=== PATIENT | female | born 1965 | race Caucasian/White ===

== ENCOUNTER 2018-03-03 05:37 | Inpatient (IN) | payer OTHER ==
[2018-03-03] MEDS ORDERED: GABAPENTIN 300 MG CAP PO ONE (06:50)
[2018-03-03] MEDS ORDERED: ceFAZolin 2 GM/DEXTROSE 100 ML IV ONE (06:50)
[2018-03-03] MEDS ORDERED: ACETAMINOPHEN 500 MG TAB PO ONE (06:50)
[2018-03-03] MEDS ORDERED: LR 1,000 ML IV ONE (06:51)
--- NOTE | 2018-03-03 07:03 | PDANEPAE ---
ANE History of Present Illness Lumbar DJD and radiculopathy, here for L4-5 lami/fusion with stealth ANE Past Medical History - Cardiovascular History Hx Hypertension: No Hx Arrhythmias: No Hx Chest Pain: No Hx Coronary Artery / Peripheral Vascular Disease: No Hx CHF / Valvular Disease: No Hx Palpitations: No Cardiovascular History Comment: HOLE IN HEART AT CLOSED BY AGE 4 - Pulmonary History Hx COPD: No Hx Asthma/Reactive Airway Disease: No Hx Recent Upper Respiratory Infection: No Hx Oxygen in Use at Home: No Hx Sleep Apnea: No Sleep Apnea Screening Result - Last Documented: Negative - Neurologic History Hx Cerebrovascular Accident: No Hx Seizures: No Hx Dementia: No - Endocrine History Hx Diabetes: No Endocrine History Comment: HYPOTHYROID - LEVOTHYROXINE - Renal History Hx Renal Disorders: No - Liver History Hx Hepatic Disorders: No - Neurological & Psychiatric Hx Hx Neurological and Psychiatric Disorders: No - Cancer History Hx Cancer: No - Congenital Disorder History Hx Congenital Disorders: No - GI History Hx Gastrointestinal Disorders: Yes Gastrointestinal History Comment: ULCERATIVE PROCTITIS - Other Health History Other Health History: NEG - Chronic Pain History Chronic Pain: Yes (BACK & LEG PAIN) - Surgical History Prior Surgeries: C SECTION. 2002 KNEE SCOPE R. 2013 BUD KNEE PARTIAL REPLACEMENTS ANE Review of Systems Review of Systems: - Exercise capacity METS (RN): 4 METS ANE Patient History - Allergies Allergies/Adverse Reactions: tramadol Allergy (Severe, Verified 01/25/13 06:10) NAUSEA/VOMITING - Home Medications Home Medications: Levothyroxine [Synthroid 75 mcg (*)] 75 mcg PO DAILY06 01/31/18 [Last Taken Unknown] Herbals/Supplements -Info Only 02/09/18 [Last Taken Unknown] Meloxicam 02/09/18 [Last Taken Unknown] - Smoking Hx Smoking Status: Never smoked - Family Anes Hx Family Hx Anesthesia Complications: NEG ANE Labs/Vital Signs - Vital Signs Blood Pressure: 100/64 Heart Rate: 66 Respiratory Rate: 18 O2 Sat (%): 100 Height: 171.45 cm Weight: 59.874 kg ANE Physical Exam - Airway Neck exam: FROM Mallampati Score: Class 2 Mouth exam: normal dental/mouth exam - Pulmonary Pulmonary: no respiratory distress - Cardiovascular Cardiovascular: regular rate and rhythym - ASA Status ASA Status: II ANE Anesthesia Plan Anesthesia Plan: general endotracheal anesthesia (PONV risk high, scop patch and all other modalities) Total IV Anesthesia: Yes
[2018-03-03] MEDS ORDERED: SCOPOLAMINE HYDROBROMIDE 1 MG/3 DAYS PATCH TD ONE (07:06)
[2018-03-03] MEDS ORDERED: MIDAZOLAM 2 MG/2 ML VIAL ONE (07:06)
[2018-03-03] MEDS ORDERED: ONDANSETRON 4 MG/2 ML VIAL ONE (07:10)
[2018-03-03] MEDS ORDERED: LIDOCAINE 2% 5 ML SDV ONE (07:10)
[2018-03-03] MEDS ORDERED: DEXAMETHASONE 4 MG/ML VIAL ONE (07:10)
[2018-03-03] MEDS ORDERED: REMIFENTANIL HCL 2 MG VIAL ONE ×2 (07:10→08:59)
[2018-03-03] MEDS ORDERED: LIDOCAINE HCL 160 MG/4 ML LTA KIT TP ONE (07:10)
[2018-03-03] MEDS ORDERED: ROCURONIUM 50 MG/5 ML VIAL ONE (07:10)
[2018-03-03] MEDS ORDERED: PROPOFOL/EMULSION 500 MG/50 ML BOTTLE IV ONE ×4 (07:10→09:26)
--- NOTE | 2018-03-03 07:16 | PDHPUP ---
History & Physical Update H&P update statement: This history and physical update is based on an assessment of the patient which was completed after admission or registration (within 24 hours), but prior to the surgery/procedure. H&P update: H&P reviewed & patient examined, no change in patient's condition since H&P completed
[2018-03-03] MEDS ORDERED: CHLORHEXIDINE GLUC HIBICLENS 118 ML BTL TP ONE (07:25)
[2018-03-03] MEDS ORDERED: THROMBIN (BOVINE) 5,000 UNIT VIAL TP ONE (07:25)
[2018-03-03] MEDS ORDERED: BUPIVACAINE/EPI 0.25% 30 ML SDV ONE (07:26)
[2018-03-03] MEDS ORDERED: BACITRACIN 50,000 UNITS/10 ML SYR IRR ONE (07:26)
[2018-03-03] MEDS ORDERED: LACTULOSE 20 GM/30 ML UDCUP PO PRN (07:31)
[2018-03-03] MEDS ORDERED: BISACODYL 10 MG SUPP PR PRN (07:31)
[2018-03-03] MEDS ORDERED: ONDANSETRON 4 MG/2 ML VIAL IVP PRN (07:31)
[2018-03-03] MEDS ORDERED: MAGNESIUM HYDROXIDE 30 ML UDCUP PO PRN (07:31)
[2018-03-03] MEDS ORDERED: diphenhydrAMINE 25 MG CAP PO PRN (07:31)
[2018-03-03] MEDS ORDERED: POLYETHYLENE GLYCOL 3350 17 GM PKT PO PRN (07:31)
[2018-03-03] MEDS ORDERED: ONDANSETRON DISINTEGRATING 4 MG TAB PO PRN (07:31)
[2018-03-03] MEDS ORDERED: NS 1,000 ML IV SCH (07:45)
[2018-03-03] MEDS ORDERED: REMIFENTANIL HCL 1 MG VIAL ONE ×2 (10:20)
--- NOTE | 2018-03-03 10:21 | PDMN ---
Medical Necessity Medical [place] [facility] [place]: 3 days: OP: TLIF L4/5.. --- AUTH # [id number] VALID FOR 3 DOS DONE IN PT.
[2018-03-03] MEDS ORDERED: PROMETHAZINE HCL 25 MG/ML INJ IVP PRN (11:30)
[2018-03-03] MEDS ORDERED: fentaNYL 100 MCG/2 ML INJ IVP PRN (11:30)
[2018-03-03] MEDS ORDERED: NALOXONE HCL 0.4 MG/ML INJ IVP PRN (11:30)
[2018-03-03] MEDS ORDERED: MEPERIDINE 25 MG/0.5 ML AMP IVP PRN (11:30)
[2018-03-03] MEDS ORDERED: DIAZEPAM 5 MG/ML 1 ML SYR IVP PRN (11:30)
[2018-03-03] MEDS ORDERED: HYDROCODONE/APAP 5/325 TAB PO PRN (11:30)
[2018-03-03] MEDS ORDERED: LR 500 ML IV PRN (11:30)
[2018-03-03] MEDS ORDERED: HYDROmorphONE/DILAUDID 2 MG/ML INJ IVP PRN (11:30)
--- NOTE | 2018-03-03 11:31 | POSTOPPROG ---
Post Op Note Date of Operation: 03/03/18 Surgeon: Any Booker Billing Checker: Lebron Osorio NP Anesthesia: GET(General Endotracheal) Pre-op Diagnosis: Lumbar stenosis Procedure: L4-5 TLIF Inf/Abcess present in the surg proc area at time of surgery?: No Depth: Deep Incisional (Fascial) EBL: 100-500 Total fluids administered: see anesthesia Complications: none Drains: Norris Chao Date of Surgery: 03/03/18 Post Op Day: 0 Assessment/Plan: Assessment: 53 yr old F s/p L4-5 TLIF for left leg and right piriforms pain Plan: -Admit Med surg -PT/OT -pain management -patient has brace-wear when out of bed -Post op xrays pending -JESS to bulb suction Please call neurosurgery with questions/concerns Subjective: waking up in pacu Objective: waking up in pacu MIN x4 5/5 BLE Dressing CDI JESS patent Appropriate Neuro Check Frequency Ordered: Yes
[2018-03-03] MEDS ORDERED: DIAZEPAM 5 MG/ML 1 ML SYR ONE (12:04)
[2018-03-03] MEDS ORDERED: fentaNYL 100 MCG/2 ML INJ ONE (12:04)
[2018-03-03] MEDS ORDERED: METHOCARBAMOL 750 MG TAB ONE (12:23)
[2018-03-03] MEDS: METHOCARBAMOL 750 MG TAB PO PRN (12:24)
--- NOTE | 2018-03-03 12:36 | GOP ---
DATE OF OPERATION: 03/03/2018 SURGEON: Javier Booker MD CONSTRUCTION FIELD ENGINEER: Roro Osorio NP. PREOPERATIVE DIAGNOSIS: Lumbar spondylolisthesis L4-5, bilateral lumbosacral radiculopathy L4-5. POSTOPERATIVE DIAGNOSIS: Lumbar spondylolisthesis L4-5, bilateral lumbosacral radiculopathy L4-5. PROCEDURE PERFORMED: Posterolateral and intervertebral arthrodesis L4-5 (34246) , posterior nonsegmental instrumentation across a single interspace L4-5 (90629) , placement of biomechanical intervertebral device L4-5 (37504), same incision bone graft harvest, microscope, spinal stereotaxy. FINDINGS: SPECIMENS: None. ESTIMATED BLOOD LOSS: 250 cc. 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 An MRI demonstrated severe stenosis at L4-5 and a spondylolisthesis at L4-5. I suggested a single-level fusion. The risk of adjacent segment disease, nerve injury, spinal fluid leak, continued symptoms was discussed. She knew there was a chance of requiring additional surgery at other levels. She knew there was a risk of infection, screw and hardware malposition, malfunction, continued symptoms and she knew there was a chance surgery may fail to alleviate her pain. I thought the risks were relatively low. She knew that in time further surgery at other levels of the spine may become necessary even after she achieves solid bony union at L4- 5. She wanted to proceed despite the risks. DESCRIPTION OF PROCEDURE: The patient was taken to the operating room and placed in supine position. General anesthesia was begun. She was flipped prone onto the Norris table. Care was taken to pad all points of contact. Her back was sterilely prepped and draped in the usual fashion. A localizing x- ray was taken. A midline incision was made. We made a 4.5 cm incision above the L4-5 interspace. The subcutaneous tissue was dissected using Bovie cautery down through the fascia and a subperiosteal dissection was made down the L4-5 lamina. A self-retaining retractor was placed. She had a degenerative spondylolisthesis at L4-5 and severe bilateral facet arthropathy at L4-5. We shot a localizing x-ray and denuded the bilateral hypertrophic facets at L4-5, attached the Stealth reference frame, performed an O-arm spin. Using frameless Stealth stereotaxy, placed pedicle screws bilaterally at L4 and L5. We used a somewhat smaller screw on the right at L4. The pedicle was somewhat small. We had somewhat of a lateral bias at L4-5 because of the L3-4 facet joints above. All the screws had excellent bony purchase. An O-arm spin was made checking all the screws and they all stimulated at acceptable levels and they were all contained within the pedicle without any medial pedicle breach. We did use an in -out-in approaching of the pedicles and there was some lateral wall breath of the screws, but there was excellent bony purchase and I was happy with the screws as well as happy with their stimulation numbers. We placed a 35 mm sammie down on the right, distracted slightly between L4 and L5, placed a 40 mm sammie on the left, distracted slightly there, got some reduction of the spondylolisthesis and then removed the soft tissue from the bone at L4-5. We then harvested the inferior L4 spinous process for autologous grafting purposes and drilled under the microscope, bilateral laminectomies at L4 and the rostral L5 laminae. We harvested this bone for autologous grafting purposes. Under the scope, we performed a central decompression. I worked our way laterally into the lateral recesses at the L4-5 level. There was a large amount of epidural veins and virtually all the bleeding from the case was from the epidural veins out laterally above the L5 roots and in the neuroforamen. We got good foraminal decompressions on each side. The dura on both sides however was very firmly adherent to the facet joint and it took considerable time to free this area and get good decompressions, but we were able to do so without breach of the dura. Everything looked great. We removed the left IAP-SAP complex on the left-hand side, decompressed the exiting left L4 root, swept the L5 nerve root medially and under the microscope incised the 4-5 disk, removed the disk and the cartilaginous endplates. We roughened the subchondral bone to create arthrodesis at L4-5 level and then packed bone autograft and BMP into the space. We chose a 7 x 23 mm expandable device, inserted at L4-5. We obtained a great fit and it was expanded under fluoroscopic guidance. I was happy with the position of the device. We decorticated all remaining bone posterolaterally bilaterally and placed bone autograft and BMP posterolaterally bilaterally followed by subfascial drain. We then closed the incision in multiple layers using Vicryl sutures. Steri-Strips were applied to the skin. The patient was reversed from anesthesia, extubated and transferred to recovery room in stable condition. They did not actually pull the tube in the operating room. She was extubated in the recovery room as she was still under the influence of some anesthetic agents upon transfer. COMPLICATIONS: None. INSTRUMENTATION USED: Thermodynamic Process Control Solara 5.5 mm system with a 35 mm sammie on the right and a 40 mm sammie on the left. We used 6.5 mm screws everywhere except on the right at L4 where we chose a 5.5 mm screw. /[id number]/MODL MTDD
[2018-03-03] MEDS: FAMOTIDINE 20 MG TAB PO SCH ×2 (12:58→20:56)
[2018-03-03] MEDS: SENNOSIDES/DOCUSATE SODIUM TAB PO SCH ×2 (12:58→20:57)
[2018-03-03] MEDS: ACETAMINOPHEN 500 MG TAB PO SCH ×2 (14:17→20:55)
[2018-03-03] MEDS: ceFAZolin 2 GM/DEXTROSE 100 ML IV SCH (16:44)
[2018-03-03] MEDS: oxyCODONE IR 5 MG TAB PO PRN (20:56)
[2018-03-04] MEDS: ceFAZolin 2 GM/DEXTROSE 100 ML IV SCH (00:26)
[2018-03-04] MEDS: oxyCODONE IR 5 MG TAB PO PRN ×3 (03:24→14:26)
[2018-03-04] MEDS: METHOCARBAMOL 750 MG TAB PO PRN ×2 (05:19→11:31)
[2018-03-04 05:25] LABS: PLATELET COUNT 253 10^3/uL (150-400)
[2018-03-04] MEDS ORDERED: LEVOTHYROXINE 75 MCG TAB PO SCH (06:00)
[2018-03-04] MEDS: ACETAMINOPHEN 500 MG TAB PO SCH ×2 (06:25→14:26)
[2018-03-04] MEDS: SENNOSIDES/DOCUSATE SODIUM TAB PO SCH ×2 (07:59→08:00)
[2018-03-04] MEDS: FAMOTIDINE 20 MG TAB PO SCH (07:59)
--- NOTE | 2018-03-04 08:39 | SOAPPROG ---
SOAP Progress Note Assessment/Plan: Assessment: doing well postop work with therapies today remove drain today. check xrays home tmrw Plan: 03/04/18 08:39 Subjective: doing well. some right hip and anterior thigh pain Objective: Vital Signs Temp Pulse Resp BP Pulse Ox 36.9 C 65 14 101/61 99 03/04/18 08:00 03/04/18 08:00 03/04/18 08:00 03/04/18 08:00 03/04/18 08:00 Laboratory Results 03/04/18 05:09 03/04/18 05:09 03/03/18 03/04/18 03/05/18 05:59 05:59 05:59 Intake Total 2910 Output Total 4610 Balance -1700 maew ICD10 Worksheet Patient Problems: Problems Problem Status Onset Pain management Acute Primary osteoarthritis of both knees Acute
[2018-03-04 12:53] VITALS: BP 84/56
--- NOTE | 2018-03-04 14:00 | ASMTCMCOM ---
CM Note CM Note Notes: Pt had planned spinal surgery. Pt resides with spouse. OT/PT rec home. Anticipate pt will d/c when medically stable. No CM d/c needs identified. CM available for changes/needs. Date Signed: 03/04/2018 01:59 PM Electronically Signed By:SHAKIRA Umana
[2018-03-06] MEDS ORDERED: ENOXAPARIN 40 MG/0.4 ML SYR SC SCH (09:00)
--- NOTE | 2018-03-07 16:37 | GDS ---
PRIMARY DIAGNOSES: Lumbar stenosis, spondylolisthesis. OPERATIONS/PROCEDURES: March 03, 2018, the patient underwent a L4-5 transforaminal lumbar interbody fusion with Dr. Booker. HOSPITAL COURSE: The patient presented to [facility] on March 03, 2018, for an L4-5 transforaminal lumbar interbody fusion with Dr. Booker. There were no known complications for surgery. Please see Dr. Booker' s operative note for further details. After surgery, the patient was in stable condition and transferred from the OR to the PACU and then to the postsurgical floor. While on the floor, the patient received physical, occupational therapy and pain management. All drains were removed. The patient was in stable condition and subsequently discharged to home on March 04, 2018. The patient will follow up in the office with Dr. Booker in 2 weeks. They have been instructed to contact our office with any questions or concerns [phone]. CONSULTS: None. COMPLICATIONS: None. DISCHARGE CONDITION: Stable DISCHARGE MEDICATIONS: See discharge medication reconciliation for details. DISCHARGE INSTRUCTIONS: The patient is to avoid any bending or twisting at the waist. She is to avoid lifting greater than 10 pounds. Patient has been instructed to wear her brace anytime she is out of bed. Patient will avoid NSAID for the next 4 to 6 months. Okay to remove her dressing on postoperative day 3, leaving the Steri-Strips in place. Patient will avoid submersion of the incision for the next 2 to 3 weeks. Patient has been instructed to contact our office with any questions or concerns. /[id number]/MODL MTDD
== END 2018-03-04 16:48 | disposition home or self-care (01) | DRG 455 ==
LOC: F3N 05:37
PROVIDERS: ADMIT Neurological Surgery; ATTEND Neurological Surgery
DX: M43.16 Spondylolisthesis, lumbar region (principal); M54.16 Radiculopathy, lumbar region; E03.9 Hypothyroidism, unspecified
CPT/HCPCS: 97161-GP; 97166-GO; 97535-GO; C1713; J0690; J1100; J2250; J2405; J2704; J3010; J3360